=== PATIENT | female | born 1965 | race Hispanic/Latino ===

== ENCOUNTER 2017-12-11 14:13 | Outpatient (CLI) | payer BC ==
--- NOTE | 2017-12-12 14:17 | Mammography Report ---
BILATERAL DIGITAL SCREENING MAMMOGRAM with CAD: 12/11/17 14:13:00 CLINICAL: Routine screening. COMPARISON: 08/02/15 FINDINGS: The breasts are mostly fatty with a few bilateral residual retroareolar fibroglandular densities, greater on the left than the right. Fibroglandular densities are more dense than on the prior exam and this may reflect hormonal stimulation.No mass, architectural distortion or suspicious calcifications. IMPRESSION: No mammographic evidence of malignancy. BI-RADS CATEGORY: 1 -- Negative RECOMMENDATION: Routine mammographic screening in one year. COMMENT: Patient follow-up letters are generated by our [employer] application.
== END 2017-12-11 14:14 | disposition home or self-care (01) ==
LOC: SPVIMAG 14:13
PROVIDERS: ATTEND Internal Medicine
DX: Z12.31 Encounter for screening mammogram for malignant neoplasm of breast (principal)
CPT/HCPCS: 77067